=== PATIENT | male | born 1935 | race Caucasian/White ===

== ENCOUNTER 2016-12-21 18:57 | Inpatient (IN) | payer OTHER ==
[~2016-12-21] VITALS: Ht 177.8 cm; Wt 54.4 kg
[2016-12-21] MEDS ORDERED: OXYC5TAB3 PO (19:43)
[2016-12-21 19:51] VITALS: BP 144/99
--- NOTE | 2016-12-21 19:51 | NUR ---
GPS ADMISSION NOTE, RECEIVED PATIENT FROM [facility]. PATIENT ARRIVED ON THIS UNIT AT 1952 VIA STRETCHER WITH 2 EMT ESCORTS. PATIENT ADMITTED ON A 5150 HOLD FOR DTS. PER HOLD WENT TO A HOSPITAL RECEIVED NO CARE AT THE HOSPITAL AND GOT BILLED $1,000.00 WITHOUT BEING SEEN. PATIENT STATES, "I DONT HAVE ANYBODY TO HELP ME SO I OVERDOSED TO SHOW EVERYONE THEY ARE TRYING TO RIP ME OFF". PT UNABLE TO CONTRACT FOR SAFETY AT THIS TIME. THE 5150 WAS REVIEWED AND THE DOCUMENTATION IN THE 5150 HOLD APPEARS TO REFLECT THE PRESENTATION OF THE PATIENT. UPON FACE TO FACE ASSESSMENT PATIENT IS CURRENTLY LYING IN BED AWAKE, HAS A COMPLAINT OF LOWER BACK PAIN AT 8 OUT OF 10 ON A PAIN SCALE. PATIENT IS TAKING ORAL PAIN MEDICATION FOR THIS PAIN. PATIENT DISPLAYING NO S/S OF APPARENT DISTRESS. PATIENT BREATHING IS UNLABORED WITH EQUAL RISE AND FALL OF THE CHEST. PATIENT IS ALERT AND ORIENTATED X 3 ON ROOM AIR. PATIENT ASSISTED WITH TURNING AND REPOSITIONING Q2HR AND PRN FOR COMFORT AND CIRCULATION. PATIENT HAS NO NEEDS AT THIS TIME. PATIENT IS NOTED TO BEING DISHEVELED, DISORGANIZED, COOPERATIVE AT TIMES AND DEPRESSED. PATIENT IS UNDER THE PSYCHIATRIC CARE OF DR. LAINEZ AND THE MEDICAL CARE OF DR. FRANCIS. PATIENT BELONGINGS WERE INVENTORIED AND CHECKED FOR CONTRABAND. ALL CONTRABAND REMOVED AND STORED IN PATIENT HALLWAY LOCKER. PATIENT ADVANCED DIRECTIVES PREFERENCE, IMMUNIZATIONS QUESTIONER, NECESSARY PAPERWORK, AND SKIN ASSESSMENT COMPLETED. PATIENT ORIENTATED TO ROOM, FLOOR, AND STAFF WITH ALL QUESTIONS ANSWERED. PATIENT EDUCATED ON THE USE OF THE CALL GUERRERO. PATIENT BED SIDE RAILS ARE UP X 2 FOR SAFETY. PATIENT BED IS LOCKED, LOW AND I WILL CONTINUE TO MONITOR THIS PATIENT Q 15 MIN WITH THE HELP OF STAFF TO MAINTAIN SAFETY.
[2016-12-21 20:46] VITALS: BP 144/99
[2016-12-21] MEDS ORDERED: MAG HYDROX/AL HYDROX/SIMETH 30 ML UDC PO PRN (21:00)
[2016-12-21] MEDS ORDERED: ZOLPIDEM TARTRATE 5 MG TABLET PO PRN (21:00)
[2016-12-21] MEDS ORDERED: MAGNESIUM HYDROXIDE 30 ML UDC PO PRN (21:00)
[2016-12-21] MEDS: ACETAMINOPHEN 325 MG TABLET PO PRN (21:35)
--- NOTE | 2016-12-21 21:35 | NUR ---
GPS RN NOTE, PATIENT HAS A COMPLAINT OF LOWER BACK AT 5 OUT 10 ON THE PAIN SCALE AND IS REQUESTING TYLENOL AT THIS TIME. PATIENT VITAL SIGNS ARE STABLE. GAVE TYLENOL 650MG PO Q6HR PRN ORDERED. WILL REASSESS PAIN AND I WILL CONTINUE TO MONITOR THIS PATIENT.
--- NOTE | 2016-12-21 21:48 | NUR ---
GPS RN NOTE, PATIENT HAS A COMPLAINT HAS A COMPLAINT OF LOWER BACK PAIN AT 6 OUT ON THE PAIN SCALE AND IS REQUESTING SOMETHING STRONGER THAN TYLENOL. PAGED [facility] AND INFORMED REBEKAH MOREIRA OF MY FINDINGS. REBEKAH MOREIRA ORDERED NORCO 5-325 1 TAB PO Q8HR PRN. ALL ORDERS NOTED AND CARRIED OUT WILL CONTINUE TO MONITOR THIS PATIENT.
[2016-12-21] MEDS ORDERED: HYDROCODONE/APAP 5/325MG 1 EACH TABLET ONE (22:32)
[2016-12-21] MEDS: HYDROCODONE/APAP 5/325MG 1 EACH TABLET PO PRN (22:36)
--- NOTE | 2016-12-21 22:36 | NUR ---
GPS RN NOTE, PATIENT HAS A COMPLAINT OF LOWER BACK AT 6 OUT 10 ON THE PAIN SCALE AND IS REQUESTING NORCO AT THIS TIME. PATIENT VITAL SIGNS ARE STABLE. GAVE NORCO 5-325 1 TAB PO Q8HR PRN ORDERED. WILL REASSESS PAIN AND I WILL CONTINUE TO MONITOR THIS PATIENT.
[2016-12-22] MEDS ORDERED: Z GUARD REMEDY 4 OZ OINT TP PRN (03:00)
[2016-12-22] MEDS: LORAZEPAM 0.5 MG TABLET PO PRN (05:57)
--- NOTE | 2016-12-22 05:58 | NUR ---
GPS RN NOTE, PATIENT HAS A COMPLAINT OF FEELING ANXIOUS AND IS REQUESTING ATIVAN AT THIS TIME. PATIENT VITAL SIGNS ARE STABLE. GAVE ATIVAN 0.5MG PO Q6HR PRN ORDERED. WILL REASSESS FOR ANXIETY AND I WILL CONTINUE TO MONITOR THIS PATIENT.
[2016-12-22 07:18] LABS: ALANINE AMINOTRANSFERASE 34 U/L (12-78); ALBUMIN 3.5 g/dL (3.4-5.0); ALKALINE PHOSPHATASE 58 U/L (46-116); ASPARTATE AMINOTRANSFERASE 39 U/L (15-37); CALCIUM, SERUM 9.3 mg/dL (8.5-10.1); CARBON DIOXIDE 30 mmol/L (21-32); CHLORIDE 108 mmol/L (98-107); GLUCOSE 106 mg/dL (74-106); POTASSIUM 4.1 mmol/L (3.5-5.1); SODIUM SERUM 145 mmol/L (136-145); TOTAL PROTEIN, SERUM 7.2 g/dL (6.4-8.2); UREA NITROGEN, BLOOD 24 mg/dL (7-18)
[2016-12-22 07:30] LABS: CHOLESTEROL 174 mg/dL (<200); HDL CHOLESTEROL 51 mg/dL (40-60); LDL 112 mg/dL (0-99); TRIGLYCERIDES 74 mg/dL (30-150)
[2016-12-22 08:00] VITALS: BP 131/75
[2016-12-22] MEDS: FAMOTIDINE (20 MG) 20 MG TABLET PO SCH (08:52)
[2016-12-22] MEDS: FOLIC ACID 1 MG TABLET PO SCH (08:52)
[2016-12-22] MEDS: DULOXETINE HCL 30 MG CAPSULE.DR PO SCH (11:00)
[2016-12-22] MEDS ORDERED: PETROLATUM,WHITE PACKET 5 GM PACKET TP PRN (11:30)
--- NOTE | 2016-12-22 13:01 | NUR ---
Initial discharge note: Patient lives alone [id number] [place] [address] [address] [place] [address]. ([phone]). Patient would like to return home upon discharge. clay processing factory worker spoke to patient's daughter Sadia Sanchez ([phone]) who confirmed that patient lives alone in an apartment. Per daughter, she would like him to move closer to her. clay processing factory worker will help form a safe and proper.
[2016-12-22] MEDS: HYDROCODONE/APAP 5/325MG 1 EACH TABLET PO PRN ×2 (15:37→23:16)
[2016-12-22 16:10] VITALS: BP 128/76
[2016-12-22 21:02] VITALS: BP 128/84
[2016-12-23 08:00] VITALS: BP 141/86
[2016-12-23] MEDS: DULOXETINE HCL 30 MG CAPSULE.DR PO SCH (08:59)
[2016-12-23] MEDS: FAMOTIDINE (20 MG) 20 MG TABLET PO SCH (08:59)
[2016-12-23] MEDS: FOLIC ACID 1 MG TABLET PO SCH (08:59)
--- NOTE | 2016-12-23 12:17 | NUR ---
dobie worker spoke to patient's brother Darrell (cell: [phone]/ home: [phone]) patient's brother wanted an update on patient. dobie worker provided patient's brother with an update, patient's brother was satisfied with the information provided. dobie worker informed patient's brother she was available if needed.
--- NOTE | 2016-12-23 12:21 | NUR ---
UR Update: wafer line worker left a voicemail with clinical to Renetta Raza shoe caser for [facility] ([phone]). wafer line worker will follow-up. Addendum: 12/23/16 at 1225 by LEONID HARP [facility]# [id number]
[2016-12-23 16:54] VITALS: BP 129/76
[2016-12-23 20:18] VITALS: BP 137/75
[2016-12-23] MEDS: ACETAMINOPHEN 325 MG TABLET PO PRN (20:52)
[2016-12-24] MEDS: LORAZEPAM 0.5 MG TABLET PO PRN (02:22)
--- NOTE | 2016-12-24 02:22 | NUR ---
PT C/O ANXIETY , PT REQUESTED FOR MEDICATION, ATIVAN GIVEN ORDERED. BP IS 128/63, HR : 68. WILL CONT TO MONITOR.
[2016-12-24 08:00] VITALS: BP 124/71
[2016-12-24] MEDS: FAMOTIDINE (20 MG) 20 MG TABLET PO SCH (09:02)
[2016-12-24] MEDS: DULOXETINE HCL 30 MG CAPSULE.DR PO SCH (09:02)
[2016-12-24] MEDS: FOLIC ACID 1 MG TABLET PO SCH (09:02)
[2016-12-24] MEDS: HYDROCODONE/APAP 5/325MG 1 EACH TABLET PO PRN ×2 (09:06→17:25)
--- NOTE | 2016-12-24 09:07 | NUR ---
RN NOTES PATIENT WAS C/O PAIN 8/10 LOWER BACK, ADMINISTERED NARCO 5/325 MG PO PRN PER PATIENT REQUEST, V/S TAKEN BP-124/71, P-63, CONTINUED MONITORING. ENCOURAGED TO INCREASE FLUID INTAKE.
[2016-12-24 16:00] VITALS: BP 139/75
--- NOTE | 2016-12-24 17:25 | NUR ---
rn notes PATIENT C/O PAIN LOWER BACK 09/24, ADMINISTERED NARCO 5/325 MG PO PRN PER PATIENT REQUEST, V/S TAKEN BP -139/75, P- 64, CONTINUED MONITORING.
[2016-12-24 20:00] VITALS: BP 117/74
[2016-12-25] MEDS: HYDROCODONE/APAP 5/325MG 1 EACH TABLET PO PRN (01:25)
[2016-12-25 08:00] VITALS: BP 117/71
[2016-12-25] MEDS: DULOXETINE HCL 30 MG CAPSULE.DR PO SCH (08:10)
[2016-12-25] MEDS: FOLIC ACID 1 MG TABLET PO SCH (08:10)
[2016-12-25] MEDS: FAMOTIDINE (20 MG) 20 MG TABLET PO SCH (08:10)
--- NOTE | 2016-12-25 10:09 | NUR ---
DR. LAINEZ GAVE AN ORDER TO D/C HOME TODAY. PT. WITHOUT DISTRESS, DENIES SUICIDAL AND HOMICIDAL AND TO FOLLOW UP WITH PSYCH AND MEDICAL DOCTORS. DR. HERNANDEZ MADE AWARE OF THE DISCHARGE AND SAID OK FOR DISCHARGE AND MADE A PRESCRIPTIONS. PICTURES TAKEN FOR THE SKIN ISSUES, DISCHARGE PAPERS READY AND BELONGINGS READY.
--- NOTE | 2016-12-25 10:40 | NUR ---
PT. LEFT THE UNIT WITH BELONGINGS AND PICKED UP BY HER DAUGHTER LUCHO MELO. PT. INSTRUCTED ON MEDS TO CONTINUE AT HOME AND VERBALIZES UNDERSTANDING AND ADVISED TO MAKE A FOLLOW UP TO HIS PSYCHIATRIST AND MEDICAL DOCTORS AND AGREED. PT. SIGNED THE DISCHARGE PAPERS. DR. LAINEZ ORDERED A HOME HEALTH SERVICES. PT. LEFT THE UNIT VIA A WHEELCHAIR AND WHEELED BY STAFF TO THE LOBBY. LEFT WITHOUT DISTRESS AND ON STABLE CONDITION. V/S TAKEN: BP 136/77, VA 73, RR 19, TEMP. 98.1 AND OXYGEN SAT 97%.
--- NOTE | 2016-12-25 14:28 | NUR ---
Discharge Note: Patient was discharged home [address] [place] [address] [address] [place] [address]. ([phone]). Patient's daughter Sadia Sanchez ([phone]) was notified and picked him up via private vehicle. Patient and patient's daughter were agreeable with the discharge plan. Patient's mood and affect were calm and appropriate upon discharge. Patient denied any suicidal and homicidal ideations. Patient was referred to [facility] ([phone]) [address] [place] [address] [phone] [place] [address]. Patient and patient's daughter agreed to follow-up within 30 days. Patient was also referred to [facility] [phone] for an intake appointment at 9:00am on 12/29/16. For smoking cessation patient was referred to a smoking cessation phone meeting with Romi 12/27/16 at 9:30 AM [phone] PIN: [id number] with [facility]. Facilitated info to IDT team who are in agreement with discharge arrangement. The multidisciplinary exitcare form was done, printed, signed, and given to the patient.
== END 2016-12-25 10:40 | disposition home or self-care (01) | DRG 881 ==
LOC: ER 19:00 → GPS 19:14
PROVIDERS: ADMIT Psychiatry & Neurology Psychiatry; ATTEND Psychiatry & Neurology Psychiatry
DX: F32.9 Major depressive disorder, single episode, unspecified (principal); D53.9 Nutritional anemia, unspecified; F17.200 Nicotine dependence, unspecified, uncomplicated; F29 Unspecified psychosis not due to a substance or known physiological condition; M19.90 Unspecified osteoarthritis, unspecified site; T40.2X1D Poisoning by other opioids, accidental (unintentional), subsequent encounter; G89.29 Other chronic pain; M25.559 Pain in unspecified hip; Z81.8 Family history of other mental and behavioral disorders
CPT/HCPCS: 36415; 80053-TC; 80061-TC; 87081-TC